=== PATIENT | female | born 1985 | race American Indian/Alaskan Native ===

== ENCOUNTER 2016-08-14 22:22 | Emergency (ER) | payer SELFPAY ==
[2016-08-14 22:29] VITALS: BP 145/74
[2016-08-14 23:00] LABS: Basophils % (Auto) 0.8 % (0.0-1.8); Eosinophils % (Auto) 1.6 % (0.0-4.3); Hematocrit 37.7 % (30.3-42.9); Hemoglobin 12.5 gm/dl (10.1-14.3); Mean Corpuscular HGB Conc 33 % (30-34); Mean Corpuscular Hemoglobin 31 pg (28-32); Mean Corpuscular Volume 94 fl (79-97); Platelet Count 225 K/mm3 (140-440); Red Cell Distribution Width 13.2 % (13.2-15.2); White Blood Count 10.4 K/mm3 (4.5-11.0)
[2016-08-14 23:20] LABS: Alanine Aminotransferase 9 units/L (7-56); Albumin 4.3 g/dL (3.9-5); Albumin/Globulin Ratio 1.4 %; Alkaline Phosphatase 52 units/L (35-129); Anion Gap 19 mmol/L; Bilirubin,Total 0.3 mg/dL (0.1-1.2); Blood Urea Nitrogen 10 mg/dL (7-17); Calcium 9.3 mg/dL (8.4-10.2); Carbon Dioxide 22 mmol/L (22-30); Chloride 103.5 mmol/L (98-107); Glucose 106 mg/dL (65-100); Lipase 22 units/L (13-60); Potassium 3.8 mmol/L (3.6-5.0); Sodium 141 mmol/L (137-145); Total Protein 7.3 g/dL (6.3-8.2)
[2016-08-14] MEDS: NACL 0.9% 1000 ML 1,000 ML IV ONE (23:20)
[2016-08-14] MEDS: DILAUDID IV ONE ×2 (23:20→23:30)
[2016-08-14] MEDS ORDERED: TORADOL ONE (23:26)
--- NOTE | 2016-08-14 23:28 | Emergency Department Report ---
ED Abdominal Pain HPI - General Chief Complaint: Abdominal Pain Stated Complaint: ABD PAIN Time Seen by Provider: 08/14/16 22:52 Source: patient Mode of arrival: Ambulatory Limitations: No Limitations - History of Present Illness Initial Comments: Patient is a 30-year-old female with no past medical history presenting with 4 days of abdominal pain. Patient reports a sharp stabbing pain over the last 4 days and now is localized to the left lower quadrant with no radiation or migration. Associated nausea vomiting. Reports she cannot get a comfortable position and has intermittent dysuria. Otherwise no fevers, chills, shortness of breath, chest pain, trauma, renal colic, pelvic pain, pelvic discharge, history of STI, or sick contacts MD Complaint: abdominal pain -: Gradual, days(s) (4) Location: LLQ Radiation: none Migration to: no migration Severity: severe Severity scale (0 -10): 10 Quality: stabbing Consistency: constant Improves With: nothing Worsens With: nothing Associated Symptoms: nausea, vomiting - Related Data Previous Rx's Medication Instructions Recorded Last Taken Type HYDROcodone/APAP 10-325 [[place] 1 each PO Q6HR PRN #12 tablet 08/15/16 Unknown Rx 10/325] Ondansetron [Zofran ODT TAB] 8 mg PO Q8HR PRN #12 tab.rapdis 08/15/16 Unknown Rx Allergies Allergy/AdvReac Type Severity Reaction Status Date / Time No Known Allergies Allergy Verified 08/14/16 23:31 ED Review of Systems ROS: Stated complaint: ABD PAIN Other details as noted in HPI Comment: All other systems reviewed and negative ED Past Medical Hx - Past Medical History Previous Medical History?: No - Surgical History Past Surgical History?: No - Social History Smoking Status: Never Smoker Substance Use Type: None - Medications Home Medications: Home Medications Medication Instructions Recorded Confirmed Last Taken Type HYDROcodone/APAP 10-325 [[place] 1 each PO Q6HR PRN #12 tablet 08/15/16 Unknown Rx 10/325] Ondansetron [Zofran ODT TAB] 8 mg PO Q8HR PRN #12 tab.rapdis 08/15/16 Unknown Rx ED Physical Exam - General Limitations: No Limitations General appearance: alert, in distress, other (writhing on the stretcher) - Head Head exam: Present: atraumatic, normocephalic - Eye Eye exam: Present: normal appearance - ENT ENT exam: Present: normal exam, mucous membranes moist - Neck Neck exam: Present: normal inspection - Respiratory Respiratory exam: Present: normal lung sounds bilaterally. Absent: respiratory distress - Cardiovascular Cardiovascular Exam: Present: regular rate, normal rhythm. Absent: systolic murmur, diastolic murmur, rubs, gallop - GI/Abdominal GI/Abdominal exam: Present: soft, tenderness (lower quadrant), normal bowel sounds. Absent: distended, guarding, rebound, rigid - Extremities Exam Extremities exam: Present: normal inspection - Back Exam Back exam: Present: normal inspection - Neurological Exam Neurological exam: Present: alert, oriented X3 - Psychiatric Psychiatric exam: Present: normal affect, normal mood - Skin Skin exam: Present: warm, dry, intact, normal color. Absent: rash ED Course Vital Signs 08/14/16 22:27 Temperature 99.5 F Pulse Rate 120 H Respiratory 20 Rate Blood Pressure 145/74 O2 Sat by Pulse 98 Oximetry ED Medical Decision Making - Lab Data Result diagrams: 08/14/16 22:40 08/14/16 22:40 Critical care attestation.: If time is entered above; I have spent that time in minutes in the direct care of this critically ill patient, excluding procedure time. ED Disposition Clinical Impression: Kidney stone, Abdominal pain Disposition: DISCHARGED TO HOME OR SELFCARE Is pt being admited?: No Condition: Stable Instructions: Abdominal Pain (ED) Prescriptions: HYDROcodone/APAP 10-325 [[place] 10/325] 1 each PO Q6HR PRN #12 tablet PRN Reason: Pain Ondansetron [Zofran ODT TAB] 8 mg PO Q8HR PRN #12 tab.rapdis PRN Reason: Nausea
[2016-08-14] MEDS: TORADOL IV ONE (23:30)
[2016-08-15] MEDS: DILAUDID IV ONE (00:50)
[2016-08-15] MEDS ORDERED: ZOFRAN ONE (00:50)
[2016-08-15] MEDS: ZOFRAN IV ONE (00:50)
[2016-08-15 02:33] LABS: Bilirubin,Urine NEG (Negative); Blood,Urine MOD (Negative); Ketones,Urine TR mg/dL (Negative); Leukocyte Esterase,Urine NEG (Negative); Mucus,Urine 3+ /HPF; Nitrite,Urine NEG (Negative); Protein,Urine <15 mg/dL mg/dL (Negative); Urobilinogen,Urine < 2.0 mg/dL (<2.0)
--- NOTE | 2016-08-15 03:32 | Cat Scan Report ---
FINAL REPORT PROCEDURE: CT ABDOMEN PELVIS WO CON TECHNIQUE: Computerized axial tomography of the abdomen and pelvis was performed without intravenous contrast. This study is performed without intravascular contrast material and its sensitivity for abdominal and pelvic pathology, including neoplasms, inflammation, abscess, free fluid, thrombosis, arterial dissection and infarction, is reduced compared with a contrast enhanced study. HISTORY: r/o kidney stone LEFT FLANK PAIN COMPARISON: No prior studies are available for comparison. FINDINGS: Visualized lower thorax: No significant abnormality. Liver: Normal size and attenuation. Spleen: Normal size and attenuation. Gallbladder and biliary system: Normal. Pancreas: Normal. Adrenals: Normal. Kidneys: Both kidneys have a normal size. No hydronephrosis. No renal stones or masses.. GI tract: No obstruction. No ileus or enteritis. The cecum, appendix and colon are normal.. Lymph nodes and mesentery: Normal. Vasculature: Normal. Bladder: Normal. Reproductive organs: There is a 2.5 centimeter cystic region on the right ovary. 1.5 centimeter cystic region on the left ovary is noted. The uterus appears normal.. Peritoneum: No free fluid. Musculoskeletal structures: No significant abnormality. Other: None. IMPRESSION: There is no evidence of intestinal or urinary tract obstruction. No ileus or enteritis. The appendix is normal. Bilateral small ovarian cysts are noted..
[2016-08-15] MEDS ORDERED: REGLAN ONE (03:50)
[2016-08-15] MEDS: REGLAN IV ONE (03:55)
[2016-08-15] MEDS: MORPHINE IV ONE (03:55)
[2016-08-15] MEDS: FLOMAX PO ONE (04:05)
== END 2016-08-15 14:45 | disposition home or self-care (01) ==
LOC: ED 22:22
DX: N20.0 Calculus of kidney (principal)
CPT/HCPCS: 36415; 74176; 80053; 81001; 81025; 83690; 85025; 96361; 96374; 96375; 96376; 99284; J1170; J1885; J2270; J2405; J2765; J7030

== ENCOUNTER 2017-01-20 20:16 | Emergency (ER) | payer SELFPAY | END 2017-01-20 21:55 | disposition left against medical advice (07) | LOC: ED 20:16 | DX: Z04.1 Encounter for examination and observation following transport accident (principal); Z53.21 Procedure and treatment not carried out due to patient leaving prior to being seen by health care provider; V49.9XXA Car occupant (driver) (passenger) injured in unspecified traffic accident, initial encounter; Y93.89 Activity, other specified; Y99.8 Other external cause status; Y92.488 Other paved roadways as the place of occurrence of the external cause ==

== ENCOUNTER 2017-04-20 16:04 | Emergency (ER) | payer OTHER ==
[2017-04-20 16:13] VITALS: BP 136/58
[2017-04-20] MEDS ORDERED: TORADOL IM ONE (17:15)
[2017-04-20] MEDS ORDERED: FLEXERIL PO ONE (17:26)
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
[2017-04-20] MEDS ORDERED: DECADRON IM ONE (17:28)
== END 2017-04-20 18:03 | disposition left against medical advice (07) ==
LOC: ED 16:04
DX: S39.012A Strain of muscle, fascia and tendon of lower back, initial encounter (principal); E11.9 Type 2 diabetes mellitus without complications; F17.200 Nicotine dependence, unspecified, uncomplicated; Z98.890 Other specified postprocedural states; X58.XXXA Exposure to other specified factors, initial encounter; Y93.89 Activity, other specified; Y99.8 Other external cause status; Y92.89 Other specified places as the place of occurrence of the external cause
CPT/HCPCS: 96372; 99282; J1100; J1885

== ENCOUNTER 2017-06-06 17:12 | Emergency (ER) | payer SELFPAY ==
[2017-06-06] MEDS ORDERED: TYLENOL PO ONE (17:44)
[2017-06-06] MEDS ORDERED: TYLENOL ONE (17:45)
[2017-06-07] MEDS ORDERED: TYLENOL #3 PO ONE (00:21)
[2017-06-07] MEDS ORDERED: PEPCID PO ONE (00:21)
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
[2017-06-07 01:52] VITALS: BP 115/76
== END 2017-06-07 00:36 | disposition home or self-care (01) ==
LOC: ED 17:12
DX: K05.6 Periodontal disease, unspecified (principal); E11.9 Type 2 diabetes mellitus without complications
CPT/HCPCS: 99282

== ENCOUNTER 2020-10-19 13:12 | Observation (INO) | payer SELFPAY ==
--- NOTE | 2020-10-19 13:16 | Event Note ---
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 Further treatment and workup at subsequent clinical providers discretion. Patient/guardian urged not to elope from the ED as their condition may be serious if not clinically assessed and managed. Initial orders include: main ED for eval
[2020-10-19] MEDS ORDERED: LORazepam 2 MG/ML VIAL ONE (13:17)
[2020-10-19] MEDS ORDERED: LORazepam 2 MG/ML VIAL IV ONE (13:19)
[2020-10-19] MEDS ORDERED: levETIRAcetam 1000 MG/NS 0.75% 1,000 MG/100 ML BAG IV ONE ×2 (13:19→17:07)
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
[2020-10-19 13:43] LABS: Basophils # (Auto) 0.1 K/mm3 (0.0-0.1); Eosinophils # (Auto) 0.1 K/mm3 (0.0-0.4); Eosinophils % (Auto) 0.6 % (0.0-4.3); Hematocrit 36.1 % (30.3-42.9); Hemoglobin 12.2 gm/dl (10.1-14.3); Lymphocytes # (Auto) 1.8 K/mm3 (1.2-5.4); Lymphocytes % (Auto) 19.9 % (13.4-35.0); Mean Corpuscular HGB Conc 34 % (30-34); Mean Corpuscular Volume 94 fl (79-97); Monocytes # (Auto) 0.5 K/mm3 (0.0-0.8); Monocytes % (Auto) 5.1 % (0.0-7.3); Platelet Count 232 K/mm3 (140-440); Red Blood Count 3.86 M/mm3 (3.65-5.03); Red Cell Distribution Width 12.6 % (13.2-15.2)
--- NOTE | 2020-10-19 13:44 | Consultation ---
Medications and Allergies Allergies Allergy/AdvReac Type Severity Reaction Status Date / Time No Known Allergies Allergy Verified 08/14/16 23:31 Home Medications Medication Instructions Recorded Confirmed Last Taken Type HYDROcodone/APAP 10-325 [[place] 1 each PO Q6HR PRN #12 tablet 08/15/16 Unknown Rx 10/325] Ondansetron [Zofran ODT TAB] 8 mg PO Q8HR PRN #12 tab.rapdis 08/15/16 Unknown Rx Cyclobenzaprine [Flexeril] 10 mg PO QHS PRN #7 tablet 04/20/17 Unknown Rx Ibuprofen [Motrin] 600 mg PO Q8H PRN #30 tablet 04/20/17 Unknown Rx predniSONE [Deltasone] 40 mg PO QDAY #5 tab 04/20/17 Unknown Rx Acetaminophen/Codeine [Tylenol 1 tab PO Q6H PRN #12 tab 06/07/17 Unknown Rx /Codeine # 3 tab] Benzocaine [Orajel Liquid 20%] 1 ml MM Q6HR PRN #1 bottle 06/07/17 Unknown Rx Chlorhexidine Mouthwash [Peridex] 15 ml MM BID #1 bottle 06/07/17 Unknown Rx Clindamycin [Clindamycin CAP] 300 mg PO Q6H #28 capsule 06/07/17 Unknown Rx Famotidine [Pepcid] 20 mg PO BID PRN #1 bottle 06/07/17 Unknown Rx Ibuprofen [Motrin] 600 mg PO Q8H PRN #30 tablet 06/07/17 Unknown Rx Physical Examination - Vital Signs Vital Signs: Vital Signs Temp Pulse Resp BP Pulse Ox 99.0 F 85 18 121/68 100 10/19/20 13:16 10/19/20 13:16 10/19/20 13:16 10/19/20 13:16 10/19/20 13:16 Assessment and Plan [facility] Consult Note # Demographics Consult Type: Acute Stroke Level 1 (0-4.5 hrs) Patient Location: Emergency Room First Name: terri Last Name: Teo Date of : 1985 Age: 34 Gender: Female Time of Initial Page (Eastern Time): 10/19/2020, 13:31 Time of Return Call (Eastern Time): 10/19/2020, 13:31 # HPI History: 34F says "my face froze". 1g keppra BID for seizures. No reported witnessed seizure, last seizure about a month ago reportedly. Tooth ache and head pain for a few days. Left side feels weak, she feels like she may have had a seizure. Last well per patient yesterday. Was on way home from work by report. # Scores Time of exam and NIHSS ( Time): 10/19/2020, 13:36 Level of Consciousness 1a: [0] = Alert; keenly responsive LOC Questions 1b: [0] = Answers both questions correctly LOC Commands 1c: [0] = Performs both tasks correctly Best Gaze 2: [0] = Normal Visual 3: [0] = No visual loss Facial Palsy 4: [0] = Normal symmetrical movements Motor Arm Left 5a: [1] = Drift Motor Arm Right 5b: [0] = No drift Motor Leg Left 6a: [1] = Drift Motor Leg Right 6b: [0] = No drift Limb Ataxia 7: [0] = Absent Sensory 8: [0] = Normal Best Language 9: [0] = No aphasia Dysarthria 10: [0] = Normal Extinction and Inattention 11: [0] = No abnormality NIHSS Total: 2 # PMH-FH-SH Past Medical History: seizure Medications: keppra # Data Time Head CT personally read by me ( Time): 10/19/2020, 13:[address]: no bleed preliminarily reviewed by me, please refer to radiology read for official reading # Assessment Impression: Altered Mental Status with mild left weakness and h/o seizure. # Plan Thrombolytic/Intervention: NOT IV Thrombolytic or IA Intervention Thrombolytic Exclusion (< 3 hour window): time of onset unclear Thrombolytic Exclusion: > 4.5 hours Intraarterial Exclusion: pending CTA head/neck. Imaging: (urgency: STAT): CT Angiogram Head and CT Angiogram Neck Imaging: (urgency: routine): MRI Brain without contrast Other: telemetry monitoring seizure precautions Additional Recommendations: continue baseline keppra outpatient dose for now. No driving until released by local provider. Disposition: admit # Logistics Telemedicine: Interactive 2 way audio and visual telecommunication technology was utilized during this visit
[2020-10-19 13:51] LABS: INR 0.97 (0.87-1.13)
[2020-10-19 13:52] LABS: Partial Thromboplastin Time 27.2 Sec. (24.2-36.6); Thrombin Time 15.1 Sec. (15.1-19.6)
[2020-10-19] MEDS ORDERED: MORPHINE 4 MG/1 ML INJ IV ONE (13:52)
--- NOTE | 2020-10-19 13:56 | Cat Scan Report ---
CT head/brain wo con INDICATION: Stroke symptoms. TECHNIQUE: All CT scans at this location are performed using CT dose reduction for ALARA by means of automated e xposure control. COMPARISON: None available. FINDINGS: There is no evidence of hemorrhage, hydrocephalus, brain edema, or mass effect/mass lesion. There is overall normal brain formation and brain volume for the patient's age. Ventricular and cisternal/sulc al size is normal for age. The included paranasal sinuses and mastoid air cells are clear. The orbits appear unremarkable. IMPRESSION: 1. No acute findings. Findings discussed with Dr. Garcia at 12:51 PM. Signer Name: Javi Gonzalez MD Signed: 10/19/2020 1:51 PM Workstation Name: [id number]
[2020-10-19 14:02] LABS: Alanine Aminotransferase 11 units/L (7-56); Albumin 4.2 g/dL (3.9-5); Blood Urea Nitrogen 13 mg/dL (7-17); Calcium 9.1 mg/dL (8.4-10.2); Hemolysis Index 15
[2020-10-19 14:13] LABS: BUN/Creatinine Ratio 22
--- NOTE | 2020-10-19 14:20 | Cat Scan Report ---
CT angio head INDICATION / CLINICAL INFORMATION: 34 years Female; Headache, Syncope, CVACODE STROKE OMNI 350 100 ML. TECHNIQUE: Thin cut axial images obtained through the head during IV bolus contrast administration. S agittal, coronal, and 3 plane MIP reconstructions performed by the technologist. NASCET type criteria used evaluate stenoses. Automated exposure control utilized for radiation reduction purposes. COMPARISON: None available. FINDINGS: INTERNAL CAROTID ARTERIES: No significant narrowing appreciated. VERTEBROBASILAR SYSTEM: No significant narrowing appreciated. DISTAL BRANCHES: Distal branches of the anterior, middle, and posterior cerebral arteries are fairly symmetric in appearance and number. ANEURYSM: None identified. ADDITIONAL FINDINGS: Remainder of the surrounding soft tissues are grossly normal. IMPRESSION: No significant abnormality on this CTA of the head. Signer Name: Montez Ritter MD, III Signed: 10/19/2020 2:16 PM Workstation Name: [id number]
--- NOTE | 2020-10-19 14:24 | Cat Scan Report ---
CT angio neck INDICATION / CLINICAL INFORMATION: 34 years Female; Headache, Syncope, CVACODE STROKE OMNI 350 100 ML. TECHNIQUE: Thin cut axial images obtained through the head during IV bolus contrast administration. S agittal, coronal, and 3 plane MIP reconstructions performed by the technologist. NASCET type criteria used evaluate stenoses. All CT scans at this location are performed using CT dose reduction for ALAR A by means of automated exposure control. COMPARISON: None available. FINDINGS: ARCH: Aortic arch is not included on this study. CAROTID ARTERIES: The visualized common and internal carotid arteries are widely patent. VERTEBRAL ARTERIES: Codominant vertebral system seen. No significant stenosis appreciated. ADDITIONAL FINDINGS: Minimal mucosal thickening in the ethmoids. IMPRESSION: No significant stenosis appreciated on this limited CTA of the neck. Signer Name: Montez Ritter MD, III Signed: 10/19/2020 2:19 PM Workstation Name: [id number]
[2020-10-19] MEDS ORDERED: ASPIRIN 81 MG TAB CHEW PO ONE (14:27)
--- NOTE | 2020-10-19 14:33 | XRay Report ---
CHEST 1 VIEW 10/19/2020 1:58 PM INDICATION / CLINICAL INFORMATION: Shortness of breath. COMPARISON: None available. FINDINGS: SUPPORT DEVICES: None. HEART / MEDIASTINUM: No significant abnormality. LUNGS / PLEURA: No significant pulmonary or pleural abnormality. No pneumothorax. ADDITIONAL FINDINGS: No significant additional findings. IMPRESSION: 1. No acute findings. Signer Name: Javi Gonzalez MD Signed: 10/19/2020 2:29 PM Workstation Name: [id number]
--- NOTE | 2020-10-19 14:58 | History and Physical Report ---
History of Present Illness Chief complaint: I was not feeling well History of present illness: 34 YO Female with Seizure Disorder, DM presents to ED for evaluation. Patient has diminished cognition at time of my evaluation and provides minimal history. Patient reports I was not feeling well". Patient presents to the emergency department with unsteady gait and collapse in the triage area. Patient seen and evaluated and was found to have a witnessed focal seizure. Patient was placed in a wheelchair and transported back to the main ED for evaluation. Patient seen and evaluated in the emergency department. All lab and imaging studies reviewed. Patient found to have symptoms consistent with seizure disorder with postictal state. Patient placed in observation status due to increased risk of worsening symptoms. Patient treated with antiepileptic therapy. Patient symptoms improved with supportive care. Patient denies fever, chills, chest pain, palpitation, productive cough, skin rash, recent ill contacts, known exposure to COVID-19. No prior mission for review. All medication listed at time of admission has been reconciled. Pulmonology consulted in ED. Past History Past Medical History: diabetes, seizures Past Surgical History: Other (Back surgery) Social history: single. denies: smoking, alcohol abuse, prescription drug abuse Family history: diabetes, hypertension Medications and Allergies Allergies Allergy/AdvReac Type Severity Reaction Status Date / Time No Known Allergies Allergy Verified 08/14/16 23:31 Home Medications Medication Instructions Recorded Confirmed Last Taken Type HYDROcodone/APAP 10-325 [[place] 1 each PO Q6HR PRN #12 tablet 08/15/16 Unknown Rx 10/325] Ondansetron [Zofran ODT TAB] 8 mg PO Q8HR PRN #12 tab.rapdis 08/15/16 Unknown Rx Cyclobenzaprine [Flexeril] 10 mg PO QHS PRN #7 tablet 04/20/17 Unknown Rx Ibuprofen [Motrin] 600 mg PO Q8H PRN #30 tablet 04/20/17 Unknown Rx predniSONE [Deltasone] 40 mg PO QDAY #5 tab 04/20/17 Unknown Rx Acetaminophen/Codeine [Tylenol 1 tab PO Q6H PRN #12 tab 06/07/17 Unknown Rx /Codeine # 3 tab] Benzocaine [Orajel Liquid 20%] 1 ml MM Q6HR PRN #1 bottle 06/07/17 Unknown Rx Chlorhexidine Mouthwash [Peridex] 15 ml MM BID #1 bottle 06/07/17 Unknown Rx Clindamycin [Clindamycin CAP] 300 mg PO Q6H #28 capsule 06/07/17 Unknown Rx Famotidine [Pepcid] 20 mg PO BID PRN #1 bottle 06/07/17 Unknown Rx Ibuprofen [Motrin] 600 mg PO Q8H PRN #30 tablet 06/07/17 Unknown Rx Review of Systems ROS unobtainable: due to mental status Exam - Constitutional Vitals: Temp Pulse Resp BP Pulse Ox 99.0 F 68 10 L 95/60 100 10/19/20 13:16 10/19/20 14:16 10/19/20 14:16 10/19/20 14:16 10/19/20 14:16 General appearance: Present: mild distress - EENT Eyes: Present: PERRL ENT: hearing intact, clear oral mucosa - Neck Neck: Present: supple, normal ROM - Respiratory Respiratory effort: normal Respiratory: bilateral: CTA - Cardiovascular Heart Sounds: Present: S1 & S2. Absent: rub, click - Extremities Extremities: pulses symmetrical, No edema Peripheral Pulses: within normal limits - Abdominal General gastrointestinal: Present: soft, non-tender, non-distended, normal bowel sounds Female genitourinary: Present: normal - Integumentary Integumentary: Present: clear, warm, dry - Musculoskeletal Musculoskeletal: gait normal, strength equal bilaterally - Psychiatric Psychiatric: appropriate mood/affect, intact judgment & insight - Neurologic Neurologic: CNII-XII intact, moves all extremities HEART Score - HEART Score Troponin: Troponin T < 0.010 ng/mL (0.00-0.029) 10/19/20 13:24 Results - Labs CBC & Chem 7: 10/19/20 13:24 10/19/20 13:24 Labs: Abnormal lab results 10/19/20 Range/Units 13:24 RDW 12.6 L (13.2-15.2) % Seg Neutrophils % 73.4 H (40.0-70.0) % Assessment and Plan - Patient Problems (1) Seizure disorder Current Visit: Yes Status: Acute Plan to address problem: Seizure precautions, neuro check, antiepileptic therapy with Keppra, fall precautions, aspiration precautions, supportive care. Pulmonology consulted in ED. CT scan head, (2) Diabetes Current Visit: Yes Status: Acute Plan to address problem: Consistent carbohydrate diet, insulin protocol, Accu-Chek, (3) DVT prophylaxis Current Visit: Yes Status: Acute Plan to address problem: SCD to bilateral lower extremities while in bed, patient is ambulatory
[2020-10-19] MEDS ORDERED: ALBUTEROL 2.5 MG/3 ML NEBU IH PRN (16:00)
[2020-10-19] MEDS ORDERED: ONDANSETRON 4 MG/2 ML INJ IV PRN (16:00)
[2020-10-19] MEDS ORDERED: ACETAMINOPHEN 325 MG TAB PO PRN (16:00)
[2020-10-19] MEDS ORDERED: KETOROLAC 30 MG/1 ML INJ IV ONE (16:16)
--- NOTE | 2020-10-19 17:11 | Event Note ---
Date: 10/19/20 Patient left AMA prior to completion of work-up. Patient informed of increased risk of worsening symptoms. Patient acknowledges understanding instructions. Patient instructed to refrain from driving until cleared by primary care physician.
[2020-10-19 17:37] VITALS: BP 106/66
[2020-10-19] MEDS ORDERED: levETIRAcetam 500 MG TAB PO SCH (22:00)
== END 2020-10-19 17:00 | disposition left against medical advice (07) ==
LOC: ED 13:12 → 3A 15:10
PROVIDERS: ADMIT Internal Medicine; ATTEND Internal Medicine
DX: G40.909 Epilepsy, unspecified, not intractable, without status epilepticus (principal); E11.9 Type 2 diabetes mellitus without complications; M62.81 Muscle weakness (generalized); R29.702 NIHSS score 2; R41.82 Altered mental status, unspecified; Z79.899 Other long term (current) drug therapy; Z98.890 Other specified postprocedural states
CPT/HCPCS: 36415; 70450; 70496; 70498; 71045; 80053; 82140; 84443; 84484; 85025; 85610; 85670; 85730; 96374; 96375; 99285; G0378; J1885; J1953; J2060; J2270; Q9967; 80320; 82962; G0480

== ENCOUNTER 2020-11-06 18:47 | Emergency (ER) | payer SELFPAY ==
[2020-11-06 19:03] VITALS: BP 104/66
[2020-11-06] MEDS ORDERED: BUTALB/ACETAMINOPHEN/CAFFEINE TAB PO ONE (20:11)
[2020-11-06] MEDS ORDERED: levETIRAcetam 1000 MG/NS 0.75% 1,000 MG/100 ML BAG IV ONE (20:11)
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
[2020-11-06 20:51] LABS: Basophils % (Auto) 0.2 % (0.0-1.8); Eosinophils % (Auto) 0.1 % (0.0-4.3); Hematocrit 34.7 % (30.3-42.9); Hemoglobin 11.9 gm/dl (10.1-14.3); Lymphocytes # (Auto) 1.1 K/mm3 (1.2-5.4); Lymphocytes % (Auto) 8.2 % (13.4-35.0); Mean Corpuscular HGB Conc 34 % (30-34); Mean Corpuscular Volume 93 fl (79-97); Monocytes # (Auto) 0.6 K/mm3 (0.0-0.8); Monocytes % (Auto) 4.4 % (0.0-7.3); Platelet Count 261 K/mm3 (140-440); Red Blood Count 3.75 M/mm3 (3.65-5.03); Red Cell Distribution Width 12.8 % (13.2-15.2)
--- NOTE | 2020-11-06 21:32 | Cat Scan Report ---
CT HEAD WITHOUT CONTRAST INDICATION / CLINICAL INFORMATION: Headache after seizure/fall. TECHNIQUE: All CT scans at this location are performed using CT dose reduction for ALARA by means of automated e xposure control. COMPARISON: Head CT 09/29/2020 FINDINGS: HEMORRHAGE: No evidence of intracranial hemorrhage or extra-axial fluid collection. EXTRA-AXIAL SPACES: Cortical sulci, sylvian fissures and basilar cisterns have an unremarkable appear ance. VENTRICULAR SYSTEM: The third and lateral ventricles are of normal size and configuration. CEREBRAL PARENCHYMA: No areas of abnormal brain parenchymal attenuation are identified. There is no i ndication of recent infarction. MIDLINE SHIFT OR HERNIATION: There is no mass effect. CEREBELLUM / BRAINSTEM: Brainstem and cerebellum have an unremarkable appearance. MIDLINE STRUCTURES:No abnormalities of the pituitary gland or pineal region are identified. INTRACRANIAL VESSELS:No abnormalities are identified on this noncontrast head CT. ORBITS: visualized portions of the orbits have an unremarkable appearance. SOFT TISSUES of HEAD: No significant abnormality. CALVARIUM: Evaluation of bone windows reveals no abnormalities. PARANASAL SINUSES / MASTOID AIR CELLS: Visualized portions of the paranasal sinuses are free from inf lammatory mucosal disease. Mastoid air cells are normally pneumatized. IMPRESSION: 1. No significant abnormality identified on head CT without contrast. No interval change. Signer Name: Amilcar Castillo MD Signed: 11/06/2020 9:27 PM Workstation Name: [id number]
--- NOTE | 2020-11-06 21:34 | Cat Scan Report ---
CT CERVICAL SPINE WITHOUT CONTRAST INDICATION / CLINICAL INFORMATION: Pain after seizure/fall. TECHNIQUE: Axial CT images were obtained through the cervical spine. Sagittal and coronal reformatted images wer e produced. All CT scans at this location are performed using CT dose reduction for ALARA by means of automated exposure control. COMPARISON: None available. FINDINGS: ALIGNMENT: No significant abnormality. No indication of traumatic subluxation. VERTEBRAE: No indication of fracture or other osseous abnormality. DISC SPACES: Disc height is normally maintained throughout. DEGENERATIVE CHANGES:No evidence of facet or uncovertebral arthropathy. CRANIOCERVICAL JUNCTION:No significant abnormality. SPINAL CANAL: Central spinal canal is adequately maintained throughout. PARASPINAL SOFT TISSUES: No significant abnormality. ADDITIONAL FINDINGS: None. LUNG APICES: No significant abnormality of visualized lungs. IMPRESSION: 1. Normal CT cervical spine. Signer Name: Amilcar Castillo MD Signed: 11/06/2020 9:29 PM Workstation Name: [id number]
[2020-11-06] MEDS ORDERED: diphenhydrAMINE 50 MG/ML VIAL IV ONE (21:40)
[2020-11-06] MEDS ORDERED: METOCLOPRAMIDE 10 MG/2 ML INJ IV ONE ×2 (21:40→21:41)
[2020-11-06 21:49] LABS: Blood Urea Nitrogen 8 mg/dL (7-17); Calcium 8.6 mg/dL (8.4-10.2); Hemolysis Index 5
[2020-11-06 21:54] LABS: BUN/Creatinine Ratio 16
== END 2020-11-06 22:13 | disposition home or self-care (01) ==
LOC: ED 18:47
DX: S16.1XXA Strain of muscle, fascia and tendon at neck level, initial encounter (principal); G40.909 Epilepsy, unspecified, not intractable, without status epilepticus; R51.9 Headache, unspecified; E11.9 Type 2 diabetes mellitus without complications; F17.200 Nicotine dependence, unspecified, uncomplicated; Z72.89 Other problems related to lifestyle; X58.XXXA Exposure to other specified factors, initial encounter; Y93.89 Activity, other specified; Y92.89 Other specified places as the place of occurrence of the external cause; Y99.8 Other external cause status
CPT/HCPCS: 36415; 70450; 72125; 80048; 83735; 84703; 85025; 96365; 96375; 99284; J1200; J1953; J2765

== ENCOUNTER 2021-04-05 15:51 | Emergency (ER) | payer SELFPAY | END 2021-04-05 19:01 | disposition left against medical advice (07) | LOC: ED 15:51 | DX: Z00.00 Encounter for general adult medical examination without abnormal findings (principal); Z53.21 Procedure and treatment not carried out due to patient leaving prior to being seen by health care provider ==